=== PATIENT | female | born 1960 | race Asian ===

== ENCOUNTER 2019-11-17 11:50 | Emergency (ER) | payer OTHER, MEDICAID ==
[~2019-11-17] VITALS: Ht 172.7 cm; Wt 73.5 kg
[2019-11-17 11:55] VITALS: BP_SYST 140
[2019-11-17] MEDS ORDERED: cloNIDine HCL 0.1 MG TABLET PO ONE (14:30)
[2019-11-17 15:25] VITALS: BP_SYST 151
== END 2019-11-17 15:23 | disposition short-term general hospital (02) ==
LOC: SED 11:50
DX: S06.2X9A Diffuse traumatic brain injury with loss of consciousness of unspecified duration, initial encounter (principal); E78.5 Hyperlipidemia, unspecified; J45.909 Unspecified asthma, uncomplicated; E11.9 Type 2 diabetes mellitus without complications; I10 Essential (primary) hypertension; V49.49XA Driver injured in collision with other motor vehicles in traffic accident, initial encounter; Y93.89 Activity, other specified; Y92.413 State road as the place of occurrence of the external cause; Y99.8 Other external cause status
CPT/HCPCS: 70450-TC; 72125-TC; 82962; 99291